=== PATIENT | male | born 1965 | race African-American/Black ===

== ENCOUNTER 2016-07-08 07:34 | Day surgery (SDC) | payer OTHER ==
[2016-07-08] VITALS (8 sets, daily range): BP systolic 136–158; BP diastolic 88–100; Ht 188 cm; Wt 85.0 kg
[~2016-07-08] VITALS: Ht 188 cm; Wt 85.0 kg
--- NOTE | ~2016-07-08 | OP ---
PATIENT NAME: AB BLACKMON MEDICAL RECORD: [id number] :69 LOCATION:[id number] ADMISSION DATE: SURGEON: INDER VALDEZ MD DATE OF OPERATION: 07/08/2016 PREOPERATIVE DIAGNOSIS: Nearly obstructing low rectal adenocarcinoma. POSTOPERATIVE DIAGNOSIS: Nearly obstructing low rectal adenocarcinoma. PROCEDURE: Transverse colostomy. SURGEON: Inder Valdez MD GENETIC PHYSICIAN: None. BLOOD LOSS: Minimal. ANESTHESIA: General. COMPLICATIONS: None. Transverse colostomy was performed in order to allow the afferent and efferent loops of large bowel to decompress. Stapling off a portion of the colon and diverting with an end-colostomy could have resulted in mucous formation within the stapled off portion of the large bowel with subsequent rupture and spillage of fecal material and malignancy into the peritoneal cavity. It is for this reason that a transverse colostomy was performed rather than a colostomy at another site. Also, a sigmoid colostomy would have been problematic as I have been informed that his sigmoid colon was removed during the last operation. OPERATIVE COURSE: The patient was conveyed to the operating room electively on 07/08/2016. General anesthesia was induced by the anesthesia staff. The abdomen was sterilely prepped and draped. A circular incision was accomplished in the epigastrium. Sharp dissection was carried down through the skin and subcutaneous tissue. I incised the anterior fascia in a cruciate fashion. I entered the peritoneal cavity sharply. A small amount of rectus abdominis muscle was divided on either side. I was able to easily identify the transverse colon. I was able to insert my finger around the transverse colon and through the mesentery of the transverse colon. I brought a red rubber Kim catheter up through this defect in the mesentery. I then sutured this to itself with some 2-0 silks anteriorly. I sutured the colon to the surrounding anterior rectus sheath with #1 Vicryls. I incised the colon transversely. The full thickness colon was sutured to the surrounding skin with 3-0 Vicryl sutures. A stomal appliance was applied. Marcaine was infiltrated into the subcutaneous tissues for postoperative analgesia. The patient was then extubated and conveyed to post-anesthesia care unit where he was in stable condition. He is going to be placed in an observation bed before being transported back to the [facility] tomorrow. I have done the doc to doc conversation with Dr. Randall Saunders, who will be the attending physician at the [place] unit over the weekend. cc: Goldy Castaneda M.D. OPERATIVE REPORT [id number] AB BLACKMON TRANSINT:[id number] Voice Confirmation ID: [id number] DOCUMENT ID: [id number] CC: Chip Pereira MD. Not located INDER VALDEZ MD CC: INDER BARRETO MD, LUZ KIRK MD and BANDAR BAILEY [phone] DICTATION DATE: 07/08/16 163 COOKY MACHINE OPERATOR: 07/09/16 0044 [facility] [address] [place] [address]
--- NOTE | ~2016-07-08 | HP ---
PATIENT: AB BLACKMON MEDICAL RECORD: [id number] ACCOUNT: [id number] LOCATION:[id number] : 69 ADMISSION DATE: 07/08/16 HISTORY AND PHYSICAL EXAMINATION CHIEF COMPLAINT: Need a colostomy. HISTORY OF PRESENT ILLNESS: I am going to asked to place a colostomy in this patient. This is going to be a diverting colostomy. We need to allow the efferent fecal material to exit through this colostomy as well as the fecal material that is distal to the colostomy as the patient has a rectal mass that is nearly obstructing and will obstruct. When it obstructs, a decompression will occur through this transverse colostomy. I am not going to place a left lower quadrant colostomy as the patient has undergone a sigmoid colectomy in the past and in order to mobilize the sigmoid colon, he would probably need a significant laparotomy incision. Additionally, we do not want to staple off the distal end of the colon and bring up a proximal stoma as the stapled off portion of the rectum would still make mucous and would eventually rupture into the peritoneal cavity, spreading fecal material and tumor throughout the peritoneal cavity. I have explained this to the patient. I have drawn a diagram. We discussed different options with regard to placement of the colostomy and I told him that this would be a transverse double-barrel epigastric colostomy. PAST MEDICAL HISTORY: Hypertension. HOME MEDICINES: Ensure, Fiber-Lax, hydrocodone, lisinopril, Zofran, OxyContin, polyethylene glycol, propranolol, terazosin, vitamin D3. ALLERGIES: SULFA. PHYSICAL EXAMINATION: GENERAL: The patient does not appear acutely ill. He does appear chronically ill. VITAL SIGNS: Reviewed. HEAD: External ears appear normal. EYES: Extraocular movements are intact. NECK: Trachea is midline. CHEST: No intercostal retractions. PULMONARY: Nonlabored, no stridor. ABDOMEN: Nontender. EXTREMITIES: No peripheral cyanosis. INTEGUMENT: No rash, no ulcerations. PSYCHIATRIC: Normal affect. IMPRESSION: Nearly-obstructing rectal mass. PLAN: Decompressive transverse double-barrel colostomy. TRANSINT:[id number] Voice Confirmation ID: [id number] DOCUMENT ID: [id number] CC: Dr. Goldy Garneriq [phone] Katya Weathers located. HISTORY AND PHYSICAL [id number] AB BLACKMON ROBERT MD CC: DR. GOLDY ANDREW, INDER BARRETO MD, LUZ KIRK MD and [id number] DICTATION DATE: 07/08/16 1323 RETORT FORKER: 07/08/16 1510 [facility] [address] [place] [id number]
[2016-07-08] MEDS ORDERED: HYDROCODONE-APA1 TAB PO (11:02)
[2016-07-08] MEDS ORDERED: FIBER-LAX625 MG PO (11:02)
[2016-07-08] MEDS ORDERED: PRINIVIL20 MG PO (11:03)
[2016-07-08] MEDS ORDERED: ZOFRAN8 MG PO (11:04)
[2016-07-08] MEDS ORDERED: OXYCONTIN10 MG PO (11:04)
[2016-07-08] MEDS ORDERED: MIRALAX17 GM PO (11:05)
[2016-07-08] MEDS ORDERED: PROPRANOLOL HCL20 MG PO (11:06)
[2016-07-08] MEDS ORDERED: HYTRIN5 MG PO (11:07)
[2016-07-08] MEDS ORDERED: VITAMIN D5000 UNIT PO (11:07)
[2016-07-08 12:13] LABS: BASOPHILS 0.3 % (0-2); EOSINOPHILS 1.4 % (0-7); HEMATOCRIT 38.8 % (42.0-54.0); HEMOGLOBIN 13.3 g/dL (13.5-17.5); IMMATURE GRANULOCYTES 0.2 % (0-5); LYMPHOCYTES 12.8 % (15-50); MCH 26.2 pg (26.0-34.0); MCHC 34.3 g/dL (31.0-37.0); MCV 76.4 fL (80.0-100.0); MEAN PLATELET VOLUME 10.2 fL (7.4-10.4); MONOCYTES 11.1 % (2-11); NEUTROPHILS 74.2 % (40-80); PLATELET COUNT 184 10x3/uL (130-400); RBC 5.08 10x6/uL (4.20-6.10); RDW 16.1 % (11.5-14.5); WBC 6.6 10x3/uL (4.8-10.8)
[2016-07-08 12:24] LABS: APTT 25.1 SECONDS (22.8-39.4); INR 0.99 (0.85-1.17)
[2016-07-08 16:15] LABS: CALC OSMOLALITY 278 mosm/kg (275-300); CALCIUM 9.7 mg/dL (8.5-10.1); CARBON DIOXIDE 27.2 mmol/L (21.0-32.0); CHLORIDE - SERUM 101 mmol/L (98-107); CREATININE - SERUM 0.7 mg/dL (0.6-1.3); GLUCOSE 96 mg/dL (74-106); POTASSIUM - SERUM 4.1 mmol/L (3.5-5.1); SODIUM 139 mmol/L (136-145); UREA NITROGEN 14 mg/dL (7-18); eGFR NON AFRICAN AMERICAN > 90 mL/min (90-120)
--- NOTE | 2016-07-08 16:20 | NUR ---
RECEIVED TO ROOM 2234 VIA STRETCHER FROM PACU. A/O X3. COLOSTOMY IS PATENT WITH BLOOD TINGED DRAINAGE NOTED. STOMA PINK AND VIABLE. LEFT PORT IS ACCESSED AND PATENT WITHOUT REDNESS AT INSERTION SITE. DENIES NEEDS OR PAIN AT THIS TIME.
--- NOTE | 2016-07-08 17:00 | NUR ---
DILAUDID BEEF KILLER INITIATED. CONTINUES WITHOUT C/O PAIN.
--- NOTE | 2016-07-08 17:37 | NUR ---
OFF BEDREST AT THIS TIME. UP TO BR WITH MIN ASSIST OF ONE. VOIDED WITHOUT DIFFICULTY.
--- NOTE | 2016-07-08 19:18 | NUR ---
VERY SLEEPY STILL BUT AROUSES TO VERBAL STIMULATION. NO CHANGES NOTED. DENIES NEEDS.
[2016-07-09] VITALS: BP 130/79
--- NOTE | 2016-07-09 02:07 | NUR ---
REC'D IN BED EYES CLOSED RESP. DEEP AND EVEN.AROUSES WHEN NAME CALLED. ABD. FLAT/OSTOMY WITH DK.RED/BROWNISH COLORED DRAINAGE OBSERVED NO NO BRIGHT RED DRAINAGE NOTED.TAKING ICE CHIPS.SIPS OF LIQUIDS AT INTERVALS DENIES NAUSEA OR PAIN AT PRESENT TIME WILL CONTINUE TO MONITOR FOR ANY CHGES. AND FOLLOW CURRENT PLAN OF CARE.
--- NOTE | 2016-07-09 02:58 | NUR ---
PT IS AWAKE WITH THE TV ON. HE HAS A GUARD AT THE BEDSIDE. RESPIRATIONS ARE EASY AND NO SIGNS OF DISTRESS NOTED. THE BED IS LOW, RAILS UP X'S 2 WITH THE CALL LIGHT AT HAND.
[2016-07-09 04:00] VITALS: BP 155/97
[2016-07-09 07:12] LABS: BASOPHILS 0.1 % (0-2); EOSINOPHILS 0 % (0-7); HEMATOCRIT 33.6 % (42.0-54.0); HEMOGLOBIN 11.8 g/dL (13.5-17.5); IMMATURE GRANULOCYTES 0.1 % (0-5); LYMPHOCYTES 10.9 % (15-50); MCH 25.9 pg (26.0-34.0); MCHC 35.1 g/dL (31.0-37.0); MEAN PLATELET VOLUME 10.3 fL (7.4-10.4); MONOCYTES 8.7 % (2-11); NEUTROPHILS 80.2 % (40-80); PLATELET COUNT 203 10x3/uL (130-400); RBC 4.55 10x6/uL (4.20-6.10)
[2016-07-09 07:13] LABS: MCV 73.8 fL (80.0-100.0); WBC 9.9 10x3/uL (4.8-10.8)
[2016-07-09 07:26] LABS: ALBUMIN 2.8 g/dL (3.4-5.0); ALKALINE PHOSPHATASE 169 U/L (46-116); ALT (SGPT) 43 U/L (10-68); BILIRUBIN - TOTAL 0.84 mg/dL (0.2-1.3); CALC OSMOLALITY 278 mosm/kg (275-300); CARBON DIOXIDE 28.3 mmol/L (21.0-32.0); CHLORIDE - SERUM 101 mmol/L (98-107); CREATININE - SERUM 0.8 mg/dL (0.6-1.3); GLUCOSE 100 mg/dL (74-106); MAGNESIUM - SERUM 1.9 mg/dL (1.8-2.4); PHOSPHOROUS 4.2 mg/dL (2.5-4.9); POTASSIUM - SERUM 3.9 mmol/L (3.5-5.1); PRE-ALBUMIN 12.2 mg/dL (18.0-35.7); PROTEIN - SERUM 7.6 g/dL (6.4-8.2); SODIUM 139 mmol/L (136-145); UREA NITROGEN 14 mg/dL (7-18); eGFR NON AFRICAN AMERICAN > 90 mL/min (90-120)
[2016-07-09 08:18] VITALS: BP 148/94
--- NOTE | 2016-07-09 10:39 | NUR ---
COLOSTOMY APPLIANCE CHANGED AT THIS TIME PT REQUESTED AND EXISTING APPLIANCE DID NOT HAVE A WAY OF EMPTYING THE BAG. EXISTING BAG WITH 100 ML OF BLOODY, BROWN THIN LIQUID. GUARDS REMAIN AT BEDSIDE. BEAM BUILDER HELPER IN USE FOR PAIN CONTROL. CALL LIGHT IN REACH, WILL CONTINUE WITH PLAN OF CARE.
[2016-07-09] MEDS ORDERED: HYDROCODON-ACE1 EAC7 PO (11:27)
--- NOTE | 2016-07-09 11:51 | NUR ---
SHARON DEACCESSED AND REPORT CALLED TO [facility] AT THIS THE MEDICAL UNIT AT [facility]. PT ASSISTED WITH DRESSING. CALL LIGHT IN REACH, WILL AWAIT D/C TRANSPORTATION.
== END 2016-07-09 12:15 ==
LOC: D.OPS 07:34 → D.SDCHOLD 07:34 → D.OPS 11:45 → EDSTATUS 12:30 → D.MS 15:54 → D.OPS 07-09 12:15
PROVIDERS: Anesthesiology; Surgery
DX: C20 Malignant neoplasm of rectum (principal); I10 Essential (primary) hypertension; Z87.891 Personal history of nicotine dependence; Z79.891 Long term (current) use of opiate analgesic; Z79.899 Other long term (current) drug therapy